=== PATIENT | female | born 2000 | race Caucasian/White ===

== ENCOUNTER 2019-04-24 21:55 | Emergency (ER) | payer MEDICAID ==
[2019-04-24 22:18] VITALS: BP 118/47; PULSE 79
--- NOTE | 2019-04-24 22:39 | EDM.PDOC ---
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 Does not know blood type. Clinic records show her blood type is B+. 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 (see below) (none) suprapubic Pain Score (Numeric/FACES): 6 - Related Data Allergies Allergy/AdvReac Type Severity Reaction Status Date / Time No Known Allergies Allergy Verified 04/24/19 22:27 Home Meds: Home Meds Ondansetron [Zofran ODT] 4 mg PO Q6H PRN #10 tab.dis 05/28/16 [Rx] PNV95/Ferrous Fumarate/FA [ Vitamin Tablet] 1 each PO DAILY 05/28/16 [ History] Progesterone, Micronized [Progesterone] 100 mg PO BID 04/24/19 [History] Past Medical History - Past Health History Medical/Surgical History: Denies Medical/Surgical History 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: Neurological History: Reports: Migraines Psychiatric History: Reports: ADD - Infectious Disease History Infectious Disease History: Reports: Chicken Pox Social & Family History - Family History GI: Reports: Cholelithiasis, Irritable Bowel Syndrome Musculoskeletal: Reports: Arthritis Psychiatric: Reports: ADD, Depression Endocrine/Metabolic: Reports: Diabetes, type II Oncologic: Reports: Lung ED ROS GENERAL - Review of Systems Review Of Systems: See Below Constitutional: Reports: No Symptoms HEENT: Reports: No Symptoms Respiratory: Reports: No Symptoms Cardiovascular: Reports: No Symptoms : Reports: Other (vaginal bleeding, less now, more an hour ago. May have passed tissue.) ED EXAM - Physical Exam Exam: See Below Exam Limited By: No Limitations General Appearance: Alert, WD/WN, No Apparent Distress Eye Exam: Bilateral Eye: Normal Inspection Ears: Normal External Exam, Normal Canal, Hearing Grossly Normal Nose: Normal Inspection, No Blood Throat/Mouth: Normal Inspection, Normal Lips, Normal Oropharynx, Normal Voice, No Airway Compromise Head: Atraumatic, Normocephalic Neck: Normal Inspection Respiratory/Chest: No Respiratory Distress, Lungs Clear, Normal Breath Sounds, No Accessory Muscle Use Cardiovascular: Regular Rate, Rhythm, No Edema GI/Abdominal Exam: Normal Bowel Sounds, Soft, Non-Tender, No Distention Back Exam: Normal Inspection Extremities: Normal Inspection, Normal Range of Motion, Non-Tender Neurological: Alert, Oriented, CN II-XII Intact, Normal Cognition, No Motor/ Sensory Deficits Psychiatric: Normal Affect, Normal Mood Skin Exam: Warm, Dry, Intact, Normal Color, No Rash Course - Vital Signs Last Recorded V/S: Last Vital Signs Temp 35.9 C 04/24/19 22:29 Pulse 79 04/24/19 22:29 Resp 16 04/24/19 22:29 BP 118/47 L 04/24/19 22:29 Pulse Ox 96 04/24/19 22:29 - Orders/Labs/Meds Labs: Laboratory Tests 04/24/19 04/24/19 Range/Units 22:31 22:31 Hgb 12.7 (12.0-15.0) g/dL HCG, Quant 29 H (0-6) mIU/mL Departure - Departure Time of Disposition: 23:31 Disposition: Home, Self-Care 01 Condition: Fair Clinical Impression: Threatened in first trimester, Threatened - Discharge Information *PRESCRIPTION DRUG MONITORING PROGRAM REVIEWED*: No *COPY OF PRESCRIPTION DRUG MONITORING REPORT IN PATIENT BIRGIT: No Instructions: Threatened Miscarriage, [id number] Referrals: Lucia Mclaughlin CNM [Primary Care Provider] - Forms: ED Department Discharge Additional Instructions: Acetaminophen as needed for pain relief. Recheck in the clinic in the next couple of days for recheck. Drink ample fluids. Avoid heavy lifting.
== END 2019-04-25 00:06 | disposition home or self-care (01) ==
LOC: JP.ED 21:55
DX: O20.0 Threatened abortion (principal); Z79.899 Other long term (current) drug therapy; Z3A.01 Less than 8 weeks gestation of pregnancy
CPT/HCPCS: 36415; 84702; 85018; 99283

== ENCOUNTER 2019-07-29 12:43 | Emergency (ER) | payer MEDICAID ==
[2019-07-29 12:55] VITALS: BP 106/64; PULSE 73
--- NOTE | 2019-07-29 13:13 | EDM.PDOC ---
ED HPI GENERAL MEDICAL PROBLEM - General Chief Complaint: Gastrointestinal Problem Stated Complaint: UTI Time Seen by Provider: 07/29/19 13:05 Source of Information: Reports: Patient History Limitations: Reports: No Limitations - History of Present Illness INITIAL COMMENTS - FREE TEXT/NARRATIVE: 19-year-old female with dysuria and increased urinary frequency for the past 24 hours. No fevers or chills, no nausea or vomiting. She is 13 weeks gestation . She has had UTIs in the past. Onset: Gradual Duration: Hour(s): (24 to 48 hours) Associated Symptoms: Denies: Chest Pain, Fever/Chills, Loss of Appetite, Nausea/ Vomiting, Shortness of Breath Bladder Pain Score (Numeric/FACES): 6 - Related Data Allergies Allergy/AdvReac Type Severity Reaction Status Date / Time No Known Allergies Allergy Verified 07/29/19 12:56 Home Meds: Home Meds Ondansetron [Zofran ODT] 4 mg PO Q6H PRN #10 tab.dis 05/28/16 [Rx] Pnv No.95/Ferrous Fum/Folic AC [ Vitamin Tablet] 1 each PO DAILY [History] Progesterone, Micronized [Progesterone] 100 mg PO BID 04/24/19 [History] Past Medical History - Past Health History Medical/Surgical History: Denies Medical/Surgical History HEENT History: Reports: Impaired Vision Genitourinary History: Reports: UTI, Recurrent 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: , 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 Neurological History: Reports: Migraines Psychiatric History: Reports: ADD, Anxiety, Depression - Infectious Disease History Infectious Disease History: Reports: Chicken Pox - Past Surgical History Head Surgeries/Procedures: Reports: None HEENT Surgical History: Reports: None Female Surgical History: Reports: None Neurological Surgical History: Reports: None Dermatological Surgical History: Reports: None Social & Family History - Family History GI: Reports: Cholelithiasis, Irritable Bowel Syndrome Musculoskeletal: Reports: Arthritis Psychiatric: Reports: ADD, Depression Endocrine/Metabolic: Reports: Diabetes, type II Oncologic: Reports: Lung - Tobacco Use Smoking Status *Q: Never Smoker Second Hand Smoke Exposure: No - Caffeine Use Caffeine Use: Reports: Soda - Recreational Drug Use Recreational Drug Use: No ED ROS GENERAL - Review of Systems Review Of Systems: See Below Constitutional: Denies: Fever, Chills Respiratory: Denies: Shortness of Breath Cardiovascular: Denies: Chest Pain GI/Abdominal: Denies: Abdominal Pain, Nausea, Vomiting Skin: Reports: No Symptoms ED EXAM, RENAL/ - Physical Exam Exam: See Below Exam Limited By: No Limitations General Appearance: Alert, No Apparent Distress Respiratory/Chest: No Respiratory Distress, Lungs Clear Back Exam: No: CVA Tenderness (R), CVA Tenderness (L) Neurological: Alert, Oriented Psychiatric: Normal Affect, Normal Mood Skin Exam: Warm, Dry Course - Vital Signs Last Recorded V/S: Last Vital Signs Temp 96.9 F 07/29/19 13:00 Pulse 73 07/29/19 13:00 Resp 18 07/29/19 13:00 BP 106/64 07/29/19 13:00 Pulse Ox 98 07/29/19 13:00 - Orders/Labs/Meds Orders: Active Orders 24 hr Category Date Time Status CULTURE URINE [RM] Stat Lab 07/29/19 13:42 Received Labs: Laboratory Tests 07/29/19 Range/Units 13:09 Urine Color [place] A (YELLOW) Urine Appearance Turbid A (CLEAR) Urine pH 6.5 (5.0-8.0) Ur Specific [place] 1.025 (1.008-1.030) Urine Protein Trace H (NEGATIVE) mg/dL Urine Glucose (UA) Negative (NEGATIVE) mg/dL Urine Ketones Negative (NEGATIVE) mg/dL Urine Occult Blood Negative (NEGATIVE) Urine Nitrite Positive H (NEGATIVE) Urine Bilirubin Small H (NEGATIVE) Urine Urobilinogen >=8.0 H (0.2-1.0) EU/dL Ur Leukocyte Esterase Small H (NEGATIVE) Urine RBC 5-10 H (0-5) Urine WBC 10-20 H (0-5) Ur Epithelial Cells Moderate Amorphous Sediment Few Urine Bacteria Many Urine Mucus Many - Re-Assessments/Exams Free Text/Narrative Re-Assessment/Exam: 07/29/19 13:12 UA was obtained. 07/29/19 13:43 Urine is markedly positive with nitrite positive urine, WBCs and bacteria. A culture was initiated and she will be placed on cephalexin 500 3 times daily for the next 7 days. She should recheck if not improving in the next 24 to 48 hours. Departure - Departure Time of Disposition: 13:56 Disposition: Home, Self-Care 01 Clinical Impression: Cystitis - Discharge Information Instructions: Urinary Tract Infection, Adult Referrals: Lucia Mclaughlin CNM [Primary Care Provider] - Forms: ED Department Discharge Care Plan Goals: Take antibiotic 3 times a day until gone, and recheck in 2 to 3 days if not improving. You will be contacted if your antibiotic needs changing. Return sooner if worsening such as vomiting the medication, increased pain or fever. Sepsis Event Note - Evaluation Sepsis Screening Result: No Definite Risk - Focused Exam Vital Signs: Vital Signs Temp Pulse Resp BP Pulse Ox 07/29/19 13:00 96.9 F 73 18 106/64 98 07/29/19 12:54 96.9 F 73 18 106/64 98 Date Exam was Performed: 07/29/19 Time Exam was Performed: 13:55 - My Orders Last 24 Hours: My Active Orders 07/29/19 13:42 CULTURE URINE [RM] Stat - Assessment/Plan Last 24 Hours: My Active Orders 07/29/19 13:42 CULTURE URINE [RM] Stat
== END 2019-07-29 13:57 | disposition home or self-care (01) ==
LOC: JP.ED 12:43
DX: O23.11 Infections of bladder in pregnancy, first trimester (principal); Z3A.13 13 weeks gestation of pregnancy
CPT/HCPCS: 81001; 87086; 87088; 87186; 99283

== ENCOUNTER 2020-01-24 06:59 | Observation (INO) | payer MEDICAID ==
[2020-01-24] MEDS ORDERED: Ondansetron 4 MG/2 ML SDV IV PRN (07:39)
[2020-01-24] MEDS ORDERED: Lactated Ringers 1,000 ML IV ONE (07:39)
[2020-01-24] MEDS ORDERED: diphenhydrAMINE 50 MG/ML SDV IVPUSH PRN ×2 (07:39)
[2020-01-24] MEDS ORDERED: Naloxone 0.4 MG/ML SDV IVPUSH PRN (07:39)
[2020-01-24] MEDS ORDERED: Sodium Chloride 0.9% 10 ML Syringe FLUSH PRN (07:39)
[2020-01-24] MEDS ORDERED: ePHEDrine 50 MG/ML SDV IVPUSH PRN ×2 (07:39)
[2020-01-24] MEDS ORDERED: Acetaminophen 325 MG Tab PO PRN (07:39)
[2020-01-24] MEDS ORDERED: Ropivacaine 200 MG in Premix Bag 1 BAG EPIDUR SCH (07:45)
--- NOTE | 2020-01-24 07:52 | PCM.LDHP ---
L&D History of Present Illness - General Date of Service: 01/24/20 Admit Problem/Dx: Patient Status Order with Admit Dx/Problem 01/24/20 07:39 Patient Status [ADT] Routine Admission Diagnosis/Problem Admission Diagnosis/Problem - History of Present Illness Improves with: Reports: None Worsens with: Reports: None Associated Symptoms: Reports: N - Related Data Allergies/Adverse Reactions: Allergies Allergy/AdvReac Type Severity Reaction Status Date / Time No Known Allergies Allergy Verified 07/29/19 12:56 Home Medications: Home Meds Ondansetron [Zofran ODT] 4 mg PO Q6H PRN #10 tab.dis 05/28/16 [Rx] Pnv No.95/Ferrous Fum/Folic AC [ Vitamin Tablet] 1 each PO DAILY [History] Progesterone, Micronized [Progesterone] 100 mg PO BID 04/24/19 [History] Past Medical History - Past Health History Medical/Surgical History: Denies Medical/Surgical History HEENT History: Reports: Impaired Vision Genitourinary History: Reports: UTI, Recurrent 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: , 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 Neurological History: Reports: Migraines Psychiatric History: Reports: ADD, Anxiety, Depression Hematologic History: Reports: Iron Deficiency - Infectious Disease History Infectious Disease History: Reports: Chicken Pox - Past Surgical History Head Surgeries/Procedures: Reports: None HEENT Surgical History: Reports: None Female Surgical History: Reports: None Neurological Surgical History: Reports: None Dermatological Surgical History: Reports: None Social & Family History - Family History GI: Reports: Cholelithiasis, Irritable Bowel Syndrome Musculoskeletal: Reports: Arthritis Psychiatric: Reports: ADD, Depression Endocrine/Metabolic: Reports: Diabetes, type II Oncologic: Reports: Lung - Caffeine Use Caffeine Use: Reports: Soda H&P Review of Systems - Review of Systems: Review Of Systems: See Below General: Reports: No Symptoms HEENT: Reports: No Symptoms Pulmonary: Reports: No Symptoms Cardiovascular: Reports: No Symptoms Gastrointestinal: Reports: No Symptoms Genitourinary: Reports: No Symptoms Musculoskeletal: Reports: No Symptoms Skin: Reports: No Symptoms Psychiatric: Reports: No Symptoms Neurological: Reports: No Symptoms Hematologic/Lymphatic: Reports: No Symptoms Immunologic: Reports: No Symptoms L&D Exam - Exam Exam: See Below - OB Specific Movement: Active Heart Tones: Present Heart Rate (FHR) Variability: Moderate (6-25 bmp) Presentation: Vertex - Carlos Score Carlos Score Cervix Position: Midposition Carlos Score Consistency: Soft Carlos Score Effacement: 51-70% Carlos Score Dilation: 1-2 cm Carlos Score Infant's Station: -2 Carlos Score Total: 7 - Exam General: Alert, Oriented, Cooperative HEENT: PERRLA, Conjunctiva Clear, EACs Clear, EOMI, Hearing Intact, Mucosa Moist & [place], Nares Patent, Normal Nasal Septum, Posterior Pharynx Clear, Pupils Equal, Pupils Reactive, TMs Clear Neck: Supple, Trachea Midline Lungs: Clear to Auscultation, Normal Respiratory Effort Cardiovascular: Regular Rate, Regular Rhythm GI/Abdominal Exam: Normal Bowel Sounds, Soft, Non-Tender, No Organomegaly, No Distention, No Abnormal Bruit, No Mass, Pelvis Stable Rectal Exam: Normal Exam, Normal Rectal Tone Genitourinary: Normal external exam, Normal bimanual exam, Normal speculum exam Back Exam: Normal Inspection, Full Range of Motion Extremities: Normal Inspection, Normal Range of Motion, Non-Tender, No Pedal Edema, Normal Capillary Refill Skin: Warm, Dry, Intact Neurological: Cranial Nerves Intact, Reflexes Equal Bilateral Psychiatric: Alert, Normal Affect, Normal Mood - Problem List (1) SNOMED Code(s): 01430139 ICD Code: Z34.90 - ENCNTR FOR SUPRVSN OF NORMAL , UNSP, UNSP TRIMESTER Status: Acute Current Visit: Yes Qualifiers: Weeks of gestation: 39 weeks Qualified Code(s): Z3A.39 - 39 weeks gestation of (2) Encounter for induction of labor SNOMED Code(s): 875346963 ICD Code: Z34.90 - ENCNTR FOR SUPRVSN OF NORMAL , UNSP, UNSP TRIMESTER Status: Acute Current Visit: Yes (3) History of delivery by vacuum extraction, currently in third trimester SNOMED Code(s): 663050167, 040289408 ICD Code: O09.293 - SUPRVSN OF PREG W POOR REPRODCTV OR OBSTET HX, THIRD TRI Status: Acute Current Visit: Yes Problem List Initiated/Reviewed/Updated: Yes Orders Last 24hrs: Active Orders 24 hr Category Date Time Status Patient Status [ADT] Routine ADT 01/24/20 07:39 Ordered Ambulate [RC] PER UNIT ROUTINE Care 01/24/20 07:39 Ordered Communication Order [RC] ASDIRECTED Care 01/24/20 07:39 Ordered Communication Order [RC] ASDIRECTED Care 01/24/20 07:39 Ordered Communication Order [RC] ROUTINE Care 01/24/20 07:39 Ordered Communication Order [RC] ROUTINE Care 01/24/20 07:39 Ordered Communication Order [RC] ROUTINE Care 01/24/20 07:39 Ordered Heart Tones [RC] PER UNIT ROUTINE Care 01/24/20 07:39 Ordered Non Stress Test [RC] Click to Edit Care 01/24/20 07:39 Ordered Insert Urinary Catheter [OM.PC] ASDIRECTED Care 01/24/20 07:45 Ordered Local Anesthetic Infusion Pump [RC] ASDIRECTED Care 01/24/20 07:39 Ordered May Shower [RC] ASDIRECTED Care 01/24/20 07:39 Ordered Notify Provider Vital Signs [RC] PRN Care 01/24/20 07:39 Ordered Notify Provider [RC] PRN Care 01/24/20 07:39 Ordered Oxygen Therapy [RC] ASDIRECTED Care 01/24/20 07:39 Ordered PCEA Epidural [RC] ASDIRECTED Care 01/24/20 07:39 Ordered PCEA Epidural [RC] ASDIRECTED Care 01/24/20 07:39 Ordered PCEA Epidural [RC] ASDIRECTED Care 01/24/20 07:42 Ordered Peripheral IV Care [RC] . DIRECTED Care 01/24/20 07:42 Ordered Pulse Oximetry [RC] ASDIRECTED Care 01/24/20 07:39 Ordered Up ad Lay [RC] ASDIRECTED Care 01/24/20 07:39 Ordered Urinary Catheter Assessment [RC] ASDIRECTED Care 01/24/20 07:42 Ordered VTE/DVT Education [RC] Click to Edit Care 01/24/20 07:45 Ordered Vital Signs [RC] PER UNIT ROUTINE Care 01/24/20 07:39 Ordered Vital Signs [RC] PER UNIT ROUTINE Care 01/24/20 07:39 Ordered Regular Diet [DIET] Diet 01/24/20 Breakfast Ordered CBC WITH AUTO DIFF [HEME] Routine Lab 01/24/20 07:39 Ordered DRUG SCREEN, URINE [URCHEM] Routine Lab 01/24/20 07:39 Ordered UA W/MICROSCOPIC [URIN] Routine Lab 01/24/20 07:39 Acetaminophen [Tylenol] Med 01/24/20 07:39 Ordered 650 mg PO Q4H PRN Lactated Ringers [Ringers, Lactated] 1,000 ml Med 01/24/20 07:39 Ordered IV .BOLUS Naloxone [Narcan] Med 01/24/20 07:39 Ordered 0.1 mg IVPUSH ASDIRECTED PRN Ondansetron [Zofran] Med 01/24/20 07:39 Ordered 4 mg IV Q4H PRN Ropivacaine [Naropin 0.2%] 200 mg Med 01/24/20 07:45 Ordered Premix Bag 1 bag EPIDUR ASDIRECTED Sodium Chloride 0.9% [Saline Flush] Med 01/24/20 07:39 Ordered 10 ml FLUSH ASDIRECTED PRN diphenhydrAMINE [Benadryl] Med 01/24/20 07:39 Ordered 25 mg IVPUSH Q6H PRN diphenhydrAMINE [Benadryl] Med 01/24/20 07:39 Ordered 50 mg IVPUSH Q6H PRN ePHEDrine [ePHEDrine sulfate] Med 01/24/20 07:39 Ordered 10 mg IVPUSH ASDIRECTED PRN ePHEDrine [ePHEDrine sulfate] Med 01/24/20 07:39 Ordered 10 mg IVPUSH ASDIRECTED PRN miSOPROStoL [Cytotec] Med 01/24/20 08:00 Once 50 mcg VAG ONETIME ONE DVT/VTE Prophylaxis Reflex [OM.PC] Routine Oth 01/24/20 07:39 Ordered Epidural Catheter Management [OM.PC] Routine Oth 01/24/20 07:39 Ordered Epidural Catheter Management [OM.PC] Urgent Oth 01/24/20 07:39 Ordered Peripheral IV Insertion Pediatric [OM.PC] Routine Oth 01/24/20 07:39 Ordered Saline Lock Insert [OM.PC] Routine Oth 01/24/20 07:39 Ordered Resuscitation Status Routine Resus Stat 01/24/20 07:39 Ordered Medication Orders Misoprostol (Cytotec) 50 mcg VAG ONETIME ONE Stop: 01/24/20 08:01 Last Admin: 01/24/20 07:25 Dose: 50 mcg Assessment/Plan Comment:: 01/24/2020 19 yo here at 39 2/7 gestational weeks for an induction of labor. Has a history of needing a vacuum assisted delivery with large repair with last full term . Patient requested induction and together provider and together weighed risks and benefits. SVE-1-1.5/75/-2 Cytotec 50mcg placed vaginally FHTs category one Labs-B positive, Hep B neg, Hep C neg, HIV neg, RPR nonreactive, GBS negative Plan- Monitor for labor Monitor FHTs Patient may be up ad lay after protocol for cytotec Patient may eat regular diet Patient may have pain control per her request, prefer greater than 4cms or call provider Plan and anticipate placing another cytotec over lunch or starting pitocin Plan and anticipate a vaginal delivery
[2020-01-24] MEDS ORDERED: Misoprostol 50 MCG (1/2 of 100 MCG) Tab VAG ONE (08:00)
[2020-01-24] MEDS ORDERED: Lactated Ringers 500 ML IV SCH (12:15)
[2020-01-24] MEDS ORDERED: Lactated Ringers 1,000 ML IV SCH ×2 (13:15→14:45)
[2020-01-24] MEDS ORDERED: hydrOXYzine HCl 25 MG Tab PO ONE (14:26)
[2020-01-24] MEDS ORDERED: Terbutaline 1 MG/ML SDV SUBCUT ONE (15:00)
[2020-01-24 15:12] VITALS: BP 110/59
[2020-01-24 17:12] VITALS: PULSE 104
--- NOTE | 2020-01-24 18:32 | PCM.PNLD ---
Labor Progress Note - VS & Meds Vital Signs: Last Vital Signs Temp 35.5 C L 01/24/20 15:00 Pulse 104 H 01/24/20 16:00 Resp 18 01/24/20 15:00 BP 110/59 L 01/24/20 15:00 Pulse Ox 99 01/24/20 16:00 Active Medications: Current Medications Acetaminophen (Tylenol) 650 mg PO Q4H PRN PRN Reason: Pain (Mild 1-3) and fever Diphenhydramine HCl (Benadryl) 25 mg IVPUSH Q6H PRN PRN Reason: Itching Diphenhydramine HCl (Benadryl) 50 mg IVPUSH Q6H PRN PRN Reason: Itching Ephedrine Sulfate (Ephedrine Sulfate) 10 mg IVPUSH ASDIRECTED PRN PRN Reason: Hypotension Ropivacaine 200 mg/ Premix 100 mls @ 0 mls/hr EPIDUR ASDIRECTED NNEKA Oxytocin/Sodium Chloride (Pitocin In Ns 20 Units/1,000 Ml) 20 unit in 1,000 mls @ 6 mls/hr IV TITRATE NNEKA; Protocol Lactated Ringer's (Ringers, Lactated) 1,000 mls @ 125 mls/hr IV ASDIRECTED NNEKA Last Admin: 01/24/20 14:30 Dose: 125 mls/hr Naloxone HCl (Narcan) 0.1 mg IVPUSH ASDIRECTED PRN PRN Reason: Oversedation Ondansetron HCl (Zofran) 4 mg IV Q4H PRN PRN Reason: Nausea/Vomiting Sodium Chloride (Saline Flush) 10 ml FLUSH ASDIRECTED PRN PRN Reason: Keep Vein Open Discontinued Medications Hydroxyzine HCl (Atarax) 50 mg PO ONETIME ONE Stop: 01/24/20 14:27 Last Admin: 01/24/20 14:39 Dose: 50 mg Lactated Ringer's (Ringers, Lactated) 1,000 mls @ 999 mls/hr IV .BOLUS ONE Stop: 01/24/20 08:39 Lactated Ringer's (Ringers, Lactated) 500 mls @ 500 mls/hr IV .BOLUS NNEKA Lactated Ringer's (Ringers, Lactated) 1,000 mls @ 500 mls/hr IV ASDIRECTED NNEKA Stop: 01/24/20 15:15 Last Admin: 01/24/20 12:15 Dose: 500 mls/hr Misoprostol (Cytotec) 50 mcg VAG ONETIME ONE Stop: 01/24/20 08:01 Last Admin: 01/24/20 07:25 Dose: 50 mcg Terbutaline Sulfate (Brethine) 0.25 mg SUBCUT ONETIME ONE Stop: 01/24/20 15:01 Last Admin: 01/24/20 15:13 Dose: 0.25 mg - Uterine Contractions Uterine Monitoring Mode: External [place] Contraction Frequency (min): 2.5-4 Contraction Duration (sec): 60-80 Contraction Intensity: Mild Uterine Resting Tone: Soft - Monitoring Heart Rate (FHR) Variability: Moderate (6-25 bmp) - Vaginal Exam Dilation (cm): 1.5 Effacement (Percent): 70 Cervical Position: Posterior Sterile Vaginal Exam Performed By: Lucia Mclaughlin - Labor Progress (Free Text) Labor Progress: 01/24/2020 Patient has not progressed. she is very anxious, complaining of severe pain in her hips and back, She is also rodrigo regularly SVE unchanged FHTs category one Contractions tachy Plan- Will not do any more medications at this time Continue to monitor for labor Continue to monitor FHTS Give atarax 50mg then a dose of terbutaline Will reassess later today
--- NOTE | 2020-01-24 18:34 | PCM.PNLD ---
Labor Progress Note - VS & Meds Vital Signs: Last Vital Signs Temp 35.5 C L 01/24/20 15:00 Pulse 104 H 01/24/20 16:00 Resp 18 01/24/20 15:00 BP 110/59 L 01/24/20 15:00 Pulse Ox 99 01/24/20 16:00 Active Medications: Current Medications Acetaminophen (Tylenol) 650 mg PO Q4H PRN PRN Reason: Pain (Mild 1-3) and fever Diphenhydramine HCl (Benadryl) 25 mg IVPUSH Q6H PRN PRN Reason: Itching Diphenhydramine HCl (Benadryl) 50 mg IVPUSH Q6H PRN PRN Reason: Itching Ephedrine Sulfate (Ephedrine Sulfate) 10 mg IVPUSH ASDIRECTED PRN PRN Reason: Hypotension Ropivacaine 200 mg/ Premix 100 mls @ 0 mls/hr EPIDUR ASDIRECTED NNEKA Oxytocin/Sodium Chloride (Pitocin In Ns 20 Units/1,000 Ml) 20 unit in 1,000 mls @ 6 mls/hr IV TITRATE NNEKA; Protocol Lactated Ringer's (Ringers, Lactated) 1,000 mls @ 125 mls/hr IV ASDIRECTED NNEKA Last Admin: 01/24/20 14:30 Dose: 125 mls/hr Naloxone HCl (Narcan) 0.1 mg IVPUSH ASDIRECTED PRN PRN Reason: Oversedation Ondansetron HCl (Zofran) 4 mg IV Q4H PRN PRN Reason: Nausea/Vomiting Sodium Chloride (Saline Flush) 10 ml FLUSH ASDIRECTED PRN PRN Reason: Keep Vein Open Discontinued Medications Hydroxyzine HCl (Atarax) 50 mg PO ONETIME ONE Stop: 01/24/20 14:27 Last Admin: 01/24/20 14:39 Dose: 50 mg Lactated Ringer's (Ringers, Lactated) 1,000 mls @ 999 mls/hr IV .BOLUS ONE Stop: 01/24/20 08:39 Lactated Ringer's (Ringers, Lactated) 500 mls @ 500 mls/hr IV .BOLUS NNEKA Lactated Ringer's (Ringers, Lactated) 1,000 mls @ 500 mls/hr IV ASDIRECTED NNEKA Stop: 01/24/20 15:15 Last Admin: 01/24/20 12:15 Dose: 500 mls/hr Misoprostol (Cytotec) 50 mcg VAG ONETIME ONE Stop: 01/24/20 08:01 Last Admin: 01/24/20 07:25 Dose: 50 mcg Terbutaline Sulfate (Brethine) 0.25 mg SUBCUT ONETIME ONE Stop: 01/24/20 15:01 Last Admin: 01/24/20 15:13 Dose: 0.25 mg - Uterine Contractions Uterine Monitoring Mode: External [place] Contraction Frequency (min): 2.5-4 Contraction Duration (sec): 60-80 Contraction Intensity: Mild Uterine Resting Tone: Soft - Monitoring Heart Rate (FHR) Variability: Moderate (6-25 bmp) - Vaginal Exam Dilation (cm): 1.5 Effacement (Percent): 70 Cervical Position: Posterior Sterile Vaginal Exam Performed By: Lucia Mclaughlin - Labor Progress (Free Text) Labor Progress: 01/24/2020 Atarax helped calm patient, SVE still remains unchanged. Patient educated on going home, sleeping here, or coming back next week for induction, patient has requested to go home and wait for spontaneous labor or will come back next tuesday for induction of labor. FHTs category one Contractions still regular Plan- Discharge patient home per her request Will send in medication for sleep
[2020-01-24] MEDS ORDERED: hydrOXYzine HCl 25 MG Tab PO PRN (22:00)
== END 2020-01-24 19:18 | disposition home or self-care (01) ==
LOC: JP.OB 06:59
PROVIDERS: ADMIT Advanced Practice Midwife; ATTEND Advanced Practice Midwife
DX: O62.9 Abnormality of forces of labor, unspecified (principal); O99.343 Other mental disorders complicating pregnancy, third trimester; F41.9 Anxiety disorder, unspecified; F32.9 Major depressive disorder, single episode, unspecified; O09.293 Supervision of pregnancy with other poor reproductive or obstetric history, third trimester; Z3A.39 39 weeks gestation of pregnancy; Z79.899 Other long term (current) drug therapy
CPT/HCPCS: 36415; 80305; 81001; 85025; A9270; J3105; J7120

== ENCOUNTER 2020-01-25 13:09 | Inpatient (IN) | payer MEDICAID ==
--- NOTE | 2020-01-25 14:12 | PCM.LDHP ---
L&D History of Present Illness - General Date of Service: 01/25/20 Admit Problem/Dx: Admission Diagnosis/Problem Admission Diagnosis/Problem Source of Information: Patient History Limitations: Reports: No Limitations - History of Present Illness Introduction:: 01/25/20 19 yo is here at 39 4/7 in active labor. Patient was here yesterday for cervical ripening and possible induction for term and per patient request. Her cervix did not change with cytotec so it was decided to send her home. She woke up this am with contractions around 0500 that have been progressively getting stronger through out the day. Membranes intact. She is coping well with contractions and does not want anything for pain at this time although does want an epidural at some point. Hx of one . Anticipate boy. Timing/Duration: Reports: minutes: (5-6) Severity: Moderate Improves with: Reports: None Worsens with: Reports: None Associated Symptoms: Reports: vaginal bleeding (bloody show) - Related Data Allergies/Adverse Reactions: Allergies Allergy/AdvReac Type Severity Reaction Status Date / Time No Known Allergies Allergy Verified 07/29/19 12:56 Home Medications: Home Meds Pnv No.95/Ferrous Fum/Folic AC [ Vitamin Tablet] 1 each PO DAILY [History] hydrOXYzine HCL [hydrOXYzine] 50 mg PO QID #28 tablet 01/24/20 [Rx] Ferrous Sulfate [Iron] 325 mg PO DAILY 01/25/20 [History] Past Medical History - Past Health History Medical/Surgical History: Denies Medical/Surgical History HEENT History: Reports: Impaired Vision Genitourinary History: Reports: UTI, Recurrent 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: , 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 : 4 Para: 1 LMP (Approximate): Neurological History: Reports: Migraines Psychiatric History: Reports: ADD, Anxiety, Depression Hematologic History: Reports: Iron Deficiency - Infectious Disease History Infectious Disease History: Reports: Chicken Pox - Past Surgical History Head Surgeries/Procedures: Reports: None HEENT Surgical History: Reports: None Female Surgical History: Reports: None Neurological Surgical History: Reports: None Dermatological Surgical History: Reports: None Social & Family History - Family History GI: Reports: Cholelithiasis, Irritable Bowel Syndrome Musculoskeletal: Reports: Arthritis Psychiatric: Reports: ADD, Depression Endocrine/Metabolic: Reports: Diabetes, type II Oncologic: Reports: Lung - Caffeine Use Caffeine Use: Reports: Soda H&P Review of Systems - Review of Systems: Review Of Systems: See Below General: Reports: No Symptoms HEENT: Reports: No Symptoms Pulmonary: Reports: No Symptoms Cardiovascular: Reports: No Symptoms Gastrointestinal: Reports: No Symptoms Genitourinary: Reports: No Symptoms Musculoskeletal: Reports: No Symptoms Skin: Reports: No Symptoms Psychiatric: Reports: No Symptoms Neurological: Reports: No Symptoms Hematologic/Lymphatic: Reports: No Symptoms Immunologic: Reports: No Symptoms L&D Exam - Exam Exam: See Below - Vital Signs Weight: 93.758 kg - OB Specific Contraction Intensity: Moderate Movement: Active Heart Tones: Present Heart Rate (FHR) Variability: Moderate (6-25 bmp) Presentation: Vertex Estimated Weight: 8 lb - Exam General: Alert, Oriented HEENT: PERRLA, Conjunctiva Clear, EOMI, Hearing Intact, Mucosa Moist & [place], Nares Patent, Normal Nasal Septum, Pupils Equal, Pupils Reactive Neck: Supple, Trachea Midline Lungs: Clear to Auscultation, Normal Respiratory Effort Cardiovascular: Regular Rate, Regular Rhythm GI/Abdominal Exam: Normal Bowel Sounds, Soft, Non-Tender, No Distention, Pelvis Stable Genitourinary: Normal external exam, Cervical dilitation, Enlarged uterus Back Exam: Normal Inspection, Full Range of Motion Extremities: Normal Inspection, Normal Range of Motion, Non-Tender, No Pedal Edema, Normal Capillary Refill Skin: Warm, Dry, Intact Neurological: Cranial Nerves Intact, Reflexes Equal Bilateral Psychiatric: Alert, Normal Affect, Normal Mood - Patient Data Lab Results Last 24 hrs: Laboratory Results - last 24 hr 01/25/20 01/25/20 Range/Units 13:51 13:51 Urine Color Yellow (YELLOW) Urine Appearance Clear (CLEAR) Urine pH 7.0 (5.0-8.0) Ur Specific [place] >= 1.030 (1.008-1.030) Urine Protein Negative (NEGATIVE) mg/dL Urine Glucose (UA) Negative (NEGATIVE) mg/dL Urine Ketones Negative (NEGATIVE) mg/dL Urine Occult Blood Trace-intact H (NEGATIVE) Urine Nitrite Negative (NEGATIVE) Urine Bilirubin Negative (NEGATIVE) Urine Urobilinogen 1.0 (0.2-1.0) EU/dL Ur Leukocyte Esterase Trace H (NEGATIVE) Urine RBC 0-5 (0-5) Urine WBC 5-10 H (0-5) Ur Epithelial Cells Many Urine Bacteria Few Urine Mucus Moderate Membrane Rupture Negative (NEGATIVE) - Problem List (1) Active labor at term SNOMED Code(s): 82679646 ICD Code: [id number] - Status: Acute Current Visit: Yes (2) History of delivery by vacuum extraction, currently in third trimester SNOMED Code(s): 924260297, 670630136 ICD Code: O09.293 - SUPRVSN OF PREG W POOR REPRODCTV OR OBSTET HX, THIRD TRI Status: Acute Current Visit: No (3) SNOMED Code(s): 76239845 ICD Code: Z34.90 - ENCNTR FOR SUPRVSN OF NORMAL , UNSP, UNSP TRIMESTER Status: Acute Current Visit: No Qualifiers: Weeks of gestation: 39 weeks Problem List Initiated/Reviewed/Updated: Yes Orders Last 24hrs: Active Orders 24 hr Category Date Time Status OB Check [OM.PC] Click To Edit Care 01/25/20 13:51 Ordered Assessment/Plan Comment:: 01/25/20 19 yo here in active labor SVE 4-5/80 per nursing Membranes intact GBS negative, B positive blood type, rubella immune, Hep B/C/HIV negative Category 1 FHT Plan: Monitor for labor progression Epidural when patient desires Anticipate
[2020-01-25] MEDS ORDERED: Ondansetron 4 MG/2 ML SDV IV PRN (14:14)
[2020-01-25] MEDS ORDERED: Sodium Chloride 0.9% 10 ML Syringe FLUSH PRN (14:14)
[2020-01-25] MEDS ORDERED: Calcium Carbonate 500 MG Tab.Chew PO PRN (14:14)
[2020-01-25] MEDS ORDERED: Lactated Ringers 1,000 ML IV ONE (14:17)
[2020-01-25] MEDS ORDERED: ePHEDrine 50 MG/ML SDV IVPUSH PRN (14:17)
--- NOTE | 2020-01-25 15:38 | PCM.PNLD ---
Labor Progress Note - VS & Meds Vital Signs: Last Vital Signs Temp 35.6 C L 01/25/20 14:14 Pulse Resp 16 01/25/20 14:14 BP 108/64 01/25/20 14:14 Pulse Ox 95 01/25/20 14:14 Active Medications: Current Medications Calcium Carbonate/Glycine (Tums) 1,000 mg PO Q2H PRN PRN Reason: Indigestion Ephedrine Sulfate (Ephedrine Sulfate) 10 mg IVPUSH ASDIRECTED PRN PRN Reason: Hypotension Ondansetron HCl (Zofran) 4 mg IV Q4H PRN PRN Reason: Nausea/Vomiting Sodium Chloride (Saline Flush) 10 ml FLUSH ASDIRECTED PRN PRN Reason: Keep Vein Open Discontinued Medications Lactated Ringer's (Ringers, Lactated) 1,000 mls @ 999 mls/hr IV .BOLUS ONE Stop: 01/25/20 15:17 - Uterine Contractions Uterine Monitoring Mode: External [place] Contraction Frequency (min): 1-4 Contraction Duration (sec): 50-90 Contraction Intensity: Moderate Uterine Resting Tone: Soft - Monitoring Monitor Mode: External Ultrasound Heart Rate (FHR) Variability: Moderate (6-25 bmp) Accelerations: Present, 15x15 Decelerations: None Strip Review: Category I - Vaginal Exam Dilation (cm): 5 Effacement (Percent): 80 Station: -1 Cervical Position: Midposition Sterile Vaginal Exam Performed By: Bernadette Gautam - Labor Progress (Free Text) Labor Progress: 01/25/20 Contractions still about every 5 minutes. SVE 5/80/-1. Discussed options with patient including expectant management, AROM (risks and benefits reviewed including injury to scalp, cord prolapse, need for Pitocin possible), and starting pitocin. Patient requests AROM. This was done with small amount of clear fluid. Category 1 tracing.
[2020-01-25] MEDS ORDERED: Ropivacaine 100 ML ONE (16:48)
[2020-01-25] MEDS ORDERED: Carboprost Tromethamine 250 MCG/1 ML Amp ONE (18:24)
[2020-01-25] MEDS ORDERED: Methylergonovine 0.2 MG/1 ML Amp ONE (18:24)
[2020-01-25] MEDS ORDERED: Misoprostol 200 MCG Tab ONE (18:24)
[2020-01-25] MEDS ORDERED: Misoprostol 50 MCG (1/2 of 100 MCG) Tab RECTAL ONE (18:25)
[2020-01-25] MEDS ORDERED: Acetaminophen 325 MG Tab, 50 Tab Bulk Bottle PO PRN (18:35)
[2020-01-25] MEDS ORDERED: Ibuprofen 200 MG Tab, 24 Tab Bulk Bottle PO PRN (18:35)
--- NOTE | 2020-01-25 18:40 | ANES ---
DATE OF SERVICE: 01/25/2020 TIME: 164. INDICATIONS: I was called to the Labor and Delivery Unit by Bernadette Gautam to evaluate Ms. Boyle for a labor epidural. She is approximately 6 cm. This is her second baby and in active labor. Risks and benefits of procedure were explained to the patient and she wished to proceed with a labor epidural. TECHNIQUE: She was placed in a sitting position. Her back was prepped x3 with Betadine, 1% lidocaine skin local was used. The epidural was placed at L3-4 using a 17-gauge Tuohy needle in loss of resistance technique. The epidural had very good feel throughout, and the epidural space was easily identified. There was negative CSF, negative blood, and negative paresthesias noted. Therefore, a catheter was threaded to 14 cm at the skin. There was negative CSF, negative blood, and negative paresthesias noted in the catheter as well. A 1.5% lidocaine test dose with epinephrine was given and this test dose was negative. The catheter was then secured with Tegaderm and tape and the patient was placed in a supine position. A 12 mL bolus of 0.2% ropivacaine was given. She had good relief from this and her vital signs remained stable, therefore, 0.2% ropivacaine drip was started at 10 mL/h. Her vital signs remained stable throughout the procedure and nurse was with me for the entire procedure. There were no anesthesia complications noted, and we will continue to monitor her throughout her Labor. Tello Gonzalez CRNA /[id number]
[2020-01-25] MEDS ORDERED: Docusate Sodium 100 MG Cap PO PRN (18:53)
[2020-01-25] MEDS ORDERED: Lanolin 100% Cream 40 GM Tube TOP PRN (18:53)
--- NOTE | 2020-01-25 19:04 | PCM.DEL ---
L & D Note - General Info Date of Service: 01/25/20 Mother's Due Date: 02/01/20 - Delivery Note Labor: Spontaneous Cervical Ripening Method: Misoprostil Delivery Outcome: Livebirth Delivery Method: Spontaneous Vaginal Delivery-Single Infant Delivery Mode: Spontaneous Presentation: Left Occiput Anterior (KAVITHA) Nuchal Cord: None, Present Anesthesia Type: Epidural Episiotomy Type: None Laceration: 1st Degree Suture type: Vicryl Suture size: 3-0 Placenta: Intact, Spontaneous Cord: 3 Vessels Estimated Blood Loss: 350 : Stimulated Score 1 min: 9 Score 5 min: 9 Second Stage Interventions: Reports: Second Nurse Assessed Progress of Descent, Second Nurse Reviewed Contraction Pattern, Second Nurse Reviewed Heart Tones, Encouragement Given, Pushing Effectively, Pushing Involuntarily, Pushing , McRobert's Position, Pushing, Pulls Own Legs Back Delivery Comments (Free Text/Narrative):: 01/25/20 19 yo G4 now P2 delivered a viable male at 1809. Cervical ripening done yesterday. Patient came back today in active labor. She progressed nicely and had an epidural. Category 1 tracing through out labor. Infant delivered spontaneously in KAVITHA position. He cried spontaneously and was placed on mothers chest. Delayed cord clamping done. Placenta delivered intact with a 3 vessel cord. Patient has a very small 1st degree perineal laceration, no sutures needed. Also has a split on the left low labia that required minimal repair, this site was an obvious repair area from her last vaginal delivery. There are no cervical or vaginal lacerations. Patient had quite a bit of oozing and so both Pitocin IV and cytotec was given to clamp the uterus. Bleeding is now light and her FF. Apgars 9, 9. Weight 9 lb 11 oz. - General Info Date of Service: 01/25/20 Functional Status: Reports: Pain Controlled - Review of Systems General: Reports: No Symptoms HEENT: Reports: No Symptoms Pulmonary: Reports: No Symptoms Cardiovascular: Reports: No Symptoms Gastrointestinal: Reports: No Symptoms Genitourinary: Reports: No Symptoms Musculoskeletal: Reports: No Symptoms Skin: Reports: No Symptoms Neurological: Reports: No Symptoms Psychiatric: Reports: No Symptoms - Patient Data Vitals - Most Recent: Last Vital Signs Temp 35.6 C L 01/25/20 14:14 Pulse Resp 16 01/25/20 14:14 BP 108/64 01/25/20 14:14 Pulse Ox 95 01/25/20 14:14 Weight - Most Recent: 93.758 kg I&O - Last 24 Hours: Intake & Output 01/25/20 01/25/20 01/25/20 06:59 14:59 22:59 Intake Total 1000 Balance 1000 Lab Results Last 24 Hours: Laboratory Results - last 24 hr 01/25/20 01/25/20 Range/Units 13:51 13:51 Urine Color Yellow (YELLOW) Urine Appearance Clear (CLEAR) Urine pH 7.0 (5.0-8.0) Ur Specific [place] >= 1.030 (1.008-1.030) Urine Protein Negative (NEGATIVE) mg/dL Urine Glucose (UA) Negative (NEGATIVE) mg/dL Urine Ketones Negative (NEGATIVE) mg/dL Urine Occult Blood Trace-intact H (NEGATIVE) Urine Nitrite Negative (NEGATIVE) Urine Bilirubin Negative (NEGATIVE) Urine Urobilinogen 1.0 (0.2-1.0) EU/dL Ur Leukocyte Esterase Trace H (NEGATIVE) Urine RBC 0-5 (0-5) Urine WBC 5-10 H (0-5) Ur Epithelial Cells Many Urine Bacteria Few Urine Mucus Moderate Membrane Rupture Negative (NEGATIVE) Med Orders - Current: Current Medications Acetaminophen (Tylenol Bulk Bottle) 650 mg PO Q4H PRN PRN Reason: Pain Calcium Carbonate/Glycine (Tums) 1,000 mg PO Q2H PRN PRN Reason: Indigestion Ephedrine Sulfate (Ephedrine Sulfate) 10 mg IVPUSH ASDIRECTED PRN PRN Reason: Hypotension Ibuprofen (Motrin Bulk Bottle) 600 mg PO Q6H PRN PRN Reason: Pain Ondansetron HCl (Zofran) 4 mg IV Q4H PRN PRN Reason: Nausea/Vomiting Sodium Chloride (Saline Flush) 10 ml FLUSH ASDIRECTED PRN PRN Reason: Keep Vein Open Discontinued Medications Carboprost Tromethamine (Hemabate Ds) Confirm Administered Dose 250 mcg .ROUTE .STK-MED ONE Stop: 01/25/20 18:25 Lactated Ringer's (Ringers, Lactated) 1,000 mls @ 999 mls/hr IV .BOLUS ONE Stop: 01/25/20 15:17 Last Admin: 01/25/20 16:40 Dose: 999 mls/hr Oxytocin/Sodium Chloride (Pitocin In Ns 20 Units/1,000 Ml) 20 unit in 1,000 mls @ 999 mls/hr IV BOLUS ONE Stop: 01/25/20 17:30 Last Admin: 01/25/20 18:09 Dose: 999 mls/hr Ropivacaine (Naropin 0.2%) Confirm Administered Dose 100 mls @ as directed .ROUTE .STK-MED ONE Stop: 01/25/20 16:49 Methylergonovine Maleate (Methergine) Confirm Administered Dose 0.2 mg .ROUTE .STK-MED ONE Stop: 01/25/20 18:25 Misoprostol (Cytotec) Confirm Administered Dose 800 mcg .ROUTE .STK-MED ONE Stop: 01/25/20 18:25 Last Admin: 01/25/20 18:34 Dose: 800 mcg Misoprostol (Cytotec) 800 mcg RECTAL ONETIME ONE Stop: 01/25/20 18:26 - Exam General: Alert, Oriented HEENT: Pupils Equal, Pupils Reactive, EOMI, Mucous Membr. Moist/[place] Neck: Supple Lungs: Clear to Auscultation, Normal Respiratory Effort Cardiovascular: Regular Rate, Regular Rhythm GI/Abdominal Exam: Normal Bowel Sounds, Soft, Non-Tender, No Distention, Pelvis Stable (Female) Exam: Normal External Exam, Enlarged Uterus, Vaginal Bleeding. No: Vaginal Tears Back Exam: Normal Inspection, Full Range of Motion Extremities: Normal Inspection, Normal Range of Motion, Non-Tender, No Pedal Edema, Normal Capillary Refill Skin: Warm, Dry, Intact Neurological: No New Focal Deficit Psy/Mental Status: Alert, Normal Affect, Normal Mood - Problem List & Annotations (1) Active labor at term SNOMED Code(s): 52223046 Code(s): EPS1898 - Status: Acute Current Visit: Yes (2) History of delivery by vacuum extraction, currently in third trimester SNOMED Code(s): 253208488, 749909292 Code(s): O09.293 - SUPRVSN OF PREG W POOR REPRODCTV OR OBSTET HX, THIRD TRI Status: Acute Current Visit: No (3) SNOMED Code(s): 86616228 Code(s): Z34.90 - ENCNTR FOR SUPRVSN OF NORMAL , UNSP, UNSP TRIMESTER Status: Acute Current Visit: No Qualifiers: Weeks of gestation: 39 weeks (4) Vaginal delivery SNOMED Code(s): 890281333 Code(s): O80 - ENCOUNTER FOR FULL-TERM UNCOMPLICATED DELIVERY Status: Acute Current Visit: Yes - Problem List Review Problem List Initiated/Reviewed/Updated: Yes - My Orders Last 24 Hours: My Active Orders 01/25/20 13:51 OB Check [OM.PC] Click to Edit 01/25/20 14:14 Patient Status [ADT] Routine Communication Order [RC] ASDIRECTED Notify Provider [RC] PRN Up ad Lay [RC] ASDIRECTED Vital Signs [RC] PER UNIT ROUTINE Calcium Carbonate [Tums] 1,000 mg PO Q2H PRN Ondansetron [Zofran] 4 mg IV Q4H PRN Sodium Chloride 0.9% [Saline Flush] 10 ml FLUSH ASDIRECTED PRN DVT/VTE Prophylaxis Reflex [OM.PC] Routine Saline Lock Insert [OM.PC] Routine Resuscitation Status Routine 01/25/20 14:16 Notify Provider Vital Signs [RC] PRN VTE/DVT Education [RC] Click to Edit 01/25/20 14:17 ePHEDrine [ePHEDrine sulfate] 10 mg IVPUSH ASDIRECTED PRN Epidural Catheter Management [OM.PC] Urgent 01/25/20 14:18 Communication Order [RC] ASDIRECTED Local Anesthetic Infusion Pump [RC] ASDIRECTED PCEA Epidural [RC] ASDIRECTED Urinary Catheter Assessment [RC] ASDIRECTED 01/25/20 14:30 Insert Urinary Catheter [OM.PC] ASDIRECTED 01/25/20 18:35 Acetaminophen [Tylenol Bulk Bottle] 650 mg PO Q4H PRN Ibuprofen [Motrin Bulk Bottle] 600 mg PO Q6H PRN 01/25/20 18:53 Patient Status [ADT] Routine May Shower [RC] ASDIRECTED Vital Signs [RC] PFP Consult to Application Analyst [CONS] Routine Docusate Sodium [Colace] 100 mg PO BID PRN Lanolin [Lansinoh HPA] 1 gm TOP ASDIRECTED PRN Assess Lochia [WOMSER] Per Unit Routine Assess Uterine Involution [WOMSER] Per Unit Routine 01/25/20 18:54 Ice Therapy [OM.PC] Per Unit Routine Perineal Care [OM.PC] Per Unit Routine 01/25/20 Lunch Regular Diet [DIET] 01/26/20 05:11 CBC WITH AUTO DIFF [HEME] AM 01/26/20 08:00 Ferrous Sulfate 325 mg PO WITHBREAKFAST - Assessment Assessment:: 01/25/20 19 yo with 1st degree perineal with no repair, left labial with repair Beginning Hgb 9.9, pt bleeding light to moderate flow now - Plan Plan:: 01/25/20 19 yo here in active labor SVE 4-5/80 per nursing Membranes intact GBS negative, B positive blood type, rubella immune, Hep B/C/HIV negative Category 1 FHT Plan: Monitor for labor progression Epidural when patient desires Anticipate 01/25/20 Routine cares Monitor bleeding closely support Anticipate 24-48 hour stay
--- NOTE | 2020-01-26 06:15 | PCM.PNPP ---
- General Info Date of Service: 01/26/20 Functional Status: Reports: Pain Controlled - Review of Systems General: Reports: No Symptoms HEENT: Reports: No Symptoms Pulmonary: Reports: No Symptoms Cardiovascular: Reports: No Symptoms Gastrointestinal: Reports: No Symptoms Genitourinary: Reports: No Symptoms Musculoskeletal: Reports: No Symptoms Skin: Reports: No Symptoms Neurological: Reports: No Symptoms Psychiatric: Reports: No Symptoms - General Info Date of Service: 01/26/20 - Patient Data Vital Signs - Most Recent: Last Vital Signs Temp 37.0 C 01/26/20 03:04 Pulse 85 01/26/20 03:04 Resp 16 01/26/20 03:04 BP 109/61 01/26/20 03:04 Pulse Ox 98 01/26/20 03:04 Weight - Most Recent: 93.758 kg I&O - Last 24 Hours: Intake & Output 01/25/20 01/25/20 01/26/20 14:59 22:59 06:59 Intake Total 1000 900 Balance 1000 900 Lab Results - Last 24 Hours: Laboratory Results - last 24 hr 01/25/20 01/25/20 01/26/20 Range/Units 13:51 13:51 05:35 WBC 11.9 H (4.5-11.0) K/uL RBC 3.70 (3.30-5.50) M/uL Hgb 9.1 L (12.0-15.0) g/dL Hct 29.6 L (36.0-48.0) % MCV 80 (80-98) fL MCH 25 L (27-31) pg MCHC 31 L (32-36) % Plt Count 163 (150-400) K/uL Neut % (Auto) 75 H (36-66) % Lymph % (Auto) 17 L (24-44) % [place] % (Auto) 7 H (2-6) % Eos % (Auto) 1 L (2-4) % Baso % (Auto) 0 (0-1) % Urine Color Yellow (YELLOW) Urine Appearance Clear (CLEAR) Urine pH 7.0 (5.0-8.0) Ur Specific [place] >= 1.030 (1.008-1.030) Urine Protein Negative (NEGATIVE) mg/dL Urine Glucose (UA) Negative (NEGATIVE) mg/dL Urine Ketones Negative (NEGATIVE) mg/dL Urine Occult Blood Trace-intact H (NEGATIVE) Urine Nitrite Negative (NEGATIVE) Urine Bilirubin Negative (NEGATIVE) Urine Urobilinogen 1.0 (0.2-1.0) EU/dL Ur Leukocyte Esterase Trace H (NEGATIVE) Urine RBC 0-5 (0-5) Urine WBC 5-10 H (0-5) Ur Epithelial Cells Many Urine Bacteria Few Urine Mucus Moderate Membrane Rupture Negative (NEGATIVE) Med Orders - Current: Current Medications Acetaminophen (Tylenol Bulk Bottle) 650 mg PO Q4H PRN PRN Reason: Pain Last Admin: 01/25/20 20:48 Dose: 650 mg Calcium Carbonate/Glycine (Tums) 1,000 mg PO Q2H PRN PRN Reason: Indigestion Docusate Sodium (Colace) 100 mg PO BID PRN PRN Reason: Constipation Emollient Ointment (Lansinoh Hpa) 1 gm TOP ASDIRECTED PRN PRN Reason: Sore Nipples Last Admin: 01/25/20 20:50 Dose: 1 applic Ferrous Sulfate (Ferrous Sulfate) 325 mg PO WITHBREAKFAST NNEKA Ibuprofen (Motrin Bulk Bottle) 600 mg PO Q6H PRN PRN Reason: Pain Last Admin: 01/25/20 20:47 Dose: 200 mg Ondansetron HCl (Zofran) 4 mg IV Q4H PRN PRN Reason: Nausea/Vomiting Sodium Chloride (Saline Flush) 10 ml FLUSH ASDIRECTED PRN PRN Reason: Keep Vein Open Discontinued Medications Carboprost Tromethamine (Hemabate Ds) Confirm Administered Dose 250 mcg .ROUTE .STK-MED ONE Stop: 01/25/20 18:25 Last Admin: 01/25/20 20:17 Dose: Not Given Ephedrine Sulfate (Ephedrine Sulfate) 10 mg IVPUSH ASDIRECTED PRN PRN Reason: Hypotension Lactated Ringer's (Ringers, Lactated) 1,000 mls @ 999 mls/hr IV .BOLUS ONE Stop: 01/25/20 15:17 Last Admin: 01/25/20 16:40 Dose: 999 mls/hr Oxytocin/Sodium Chloride (Pitocin In Ns 20 Units/1,000 Ml) 20 unit in 1,000 mls @ 999 mls/hr IV BOLUS ONE Stop: 01/25/20 17:30 Last Admin: 01/25/20 18:09 Dose: 999 mls/hr Ropivacaine (Naropin 0.2%) Confirm Administered Dose 100 mls @ as directed .ROUTE .STK-MED ONE Stop: 01/25/20 16:49 Methylergonovine Maleate (Methergine) Confirm Administered Dose 0.2 mg .ROUTE .STK-MED ONE Stop: 01/25/20 18:25 Last Admin: 01/25/20 20:17 Dose: Not Given Misoprostol (Cytotec) Confirm Administered Dose 800 mcg .ROUTE .STK-MED ONE Stop: 01/25/20 18:25 Last Admin: 01/25/20 18:34 Dose: 800 mcg Misoprostol (Cytotec) 800 mcg RECTAL ONETIME ONE Stop: 01/25/20 18:26 Last Admin: 01/25/20 18:28 Dose: 800 mcg - Infant Interaction Infant Disposition, : in Room with Family Interaction: Holding Infant Feeding: Breastfed ; Nursed Well Support Person: Significant Other - Recovery Exam Fundal Tone: Firm Fundal Level: 1 Fingerbreadths Above Umbilicus Fundal Placement: Midline Lochia Amount: Moderate Lochia Color: Rubra/Red Perineum Description: Intact, Minimal Bruising/Swelling Episiotomy/Laceration: Approximated Urinary Elimination: Voided - Exam General: Alert, Oriented HEENT: Pupils Equal, Pupils Reactive, Mucous Membr. Moist/[place] Neck: Supple Lungs: Clear to Auscultation, Normal Respiratory Effort Cardiovascular: Regular Rate, Regular Rhythm GI/Abdominal Exam: Normal Bowel Sounds, Soft, Non-Tender, No Organomegaly, No Distention, No Mass, Pelvis Stable Extremities: Normal Inspection, Normal Range of Motion, Non-Tender, No Pedal Edema, Normal Capillary Refill Skin: Warm, Dry, Intact Neurological: No New Focal Deficit Psy/Mental Status: Alert, Normal Affect, Normal Mood - Problem List & Annotations (1) Active labor at term SNOMED Code(s): 68242059 Code(s): NKD4139 - Status: Acute Current Visit: Yes (2) History of delivery by vacuum extraction, currently in third trimester SNOMED Code(s): 760224246, 104717779 Code(s): O09.293 - SUPRVSN OF PREG W POOR REPRODCTV OR OBSTET HX, THIRD TRI Status: Acute Current Visit: No (3) SNOMED Code(s): 40300941 Code(s): Z34.90 - ENCNTR FOR SUPRVSN OF NORMAL , UNSP, UNSP TRIMESTER Status: Acute Current Visit: No Qualifiers: Weeks of gestation: 39 weeks (4) Vaginal delivery SNOMED Code(s): 953030688 Code(s): O80 - ENCOUNTER FOR FULL-TERM UNCOMPLICATED DELIVERY Status: Acute Current Visit: Yes (5) Mother currently breast-feeding SNOMED Code(s): 837940588 Code(s): Z39.1 - ENCOUNTER FOR CARE AND EXAMINATION OF LACTATING MOTHER Status: Acute Current Visit: Yes - Problem List Review Problem List Initiated/Reviewed/Updated: Yes - My Orders Last 24 Hours: My Active Orders 01/25/20 13:51 OB Check [OM.PC] Click to Edit 01/25/20 14:14 Patient Status [ADT] Routine Up ad Lay [RC] ASDIRECTED Calcium Carbonate [Tums] 1,000 mg PO Q2H PRN Ondansetron [Zofran] 4 mg IV Q4H PRN Sodium Chloride 0.9% [Saline Flush] 10 ml FLUSH ASDIRECTED PRN DVT/VTE Prophylaxis Reflex [OM.PC] Routine Saline Lock Insert [OM.PC] Routine Resuscitation Status Routine 01/25/20 14:16 Notify Provider Vital Signs [RC] PRN VTE/DVT Education [RC] Click to Edit 01/25/20 14:17 Epidural Catheter Management [OM.PC] Urgent 01/25/20 14:30 Insert Urinary Catheter [OM.PC] ASDIRECTED 01/25/20 18:35 Acetaminophen [Tylenol Bulk Bottle] 650 mg PO Q4H PRN Ibuprofen [Motrin Bulk Bottle] 600 mg PO Q6H PRN 01/25/20 18:53 Patient Status [ADT] Routine May Shower [RC] ASDIRECTED Vital Signs [RC] Q4H Consult to Milling Machinist [CONS] Routine Docusate Sodium [Colace] 100 mg PO BID PRN Lanolin [Lansinoh HPA] 1 gm TOP ASDIRECTED PRN Assess Lochia [WOMSER] Per Unit Routine Assess Uterine Involution [WOMSER] Per Unit Routine 01/25/20 18:54 Ice Therapy [OM.PC] Per Unit Routine Perineal Care [OM.PC] Per Unit Routine 01/25/20 Lunch Regular Diet [DIET] 01/26/20 08:00 Ferrous Sulfate 325 mg PO WITHBREAKFAST - Assessment Assessment:: 01/25/20 19 yo with 1st degree perineal with no repair, left labial with repair Beginning Hgb 9.9, pt bleeding light to moderate flow now 01/26/20 Day 1 , no complications FF bleeding light Hgb 9.1 Right nipple cracked and blistered, left nipple fine , does express that she may like to pump and/or supplement with formula - Plan Plan:: 01/25/20 19 yo here in active labor SVE 4- per nursing Membranes intact GBS negative, B positive blood type, rubella immune, Hep B/C/HIV negative Category 1 FHT Plan: Monitor for labor progression Epidural when patient desires Anticipate 01/25/20 Routine cares Monitor bleeding closely support Anticipate 24-48 hour stay 01/26/20 Routine cares support and consult today Anticipate discharge tomorrow
[2020-01-26] MEDS: Ferrous Sulfate 325 MG Tab PO SCH (13:46)
--- NOTE | 2020-01-27 10:08 | PCM.PNPP ---
- General Info Date of Service: 01/27/20 Functional Status: Reports: Pain Controlled - Review of Systems General: Reports: No Symptoms HEENT: Reports: No Symptoms Pulmonary: Reports: No Symptoms Cardiovascular: Reports: No Symptoms Gastrointestinal: Reports: No Symptoms Genitourinary: Reports: No Symptoms Musculoskeletal: Reports: No Symptoms Skin: Reports: No Symptoms Neurological: Reports: No Symptoms Psychiatric: Reports: No Symptoms - General Info Date of Service: 01/27/20 - Patient Data Vital Signs - Most Recent: Last Vital Signs Temp 35.7 C L 01/27/20 03:23 Pulse 77 01/27/20 03:23 Resp 16 01/27/20 03:23 BP 104/61 01/27/20 03:23 Pulse Ox 98 01/27/20 03:23 Weight - Most Recent: 93.758 kg Med Orders - Current: Current Medications Acetaminophen (Tylenol Bulk Bottle) 650 mg PO Q4H PRN PRN Reason: Pain Last Admin: 01/25/20 20:48 Dose: 650 mg Calcium Carbonate/Glycine (Tums) 1,000 mg PO Q2H PRN PRN Reason: Indigestion Docusate Sodium (Colace) 100 mg PO BID PRN PRN Reason: Constipation Emollient Ointment (Lansinoh Hpa) 1 gm TOP ASDIRECTED PRN PRN Reason: Sore Nipples Last Admin: 01/25/20 20:50 Dose: 1 applic Ferrous Sulfate (Ferrous Sulfate) 325 mg PO WITHBREAKFAST NNEKA Last Admin: 01/26/20 13:46 Dose: 325 mg Ibuprofen (Motrin Bulk Bottle) 600 mg PO Q6H PRN PRN Reason: Pain Last Admin: 01/25/20 20:47 Dose: 200 mg Ondansetron HCl (Zofran) 4 mg IV Q4H PRN PRN Reason: Nausea/Vomiting Sodium Chloride (Saline Flush) 10 ml FLUSH ASDIRECTED PRN PRN Reason: Keep Vein Open Discontinued Medications Carboprost Tromethamine (Hemabate Ds) Confirm Administered Dose 250 mcg .ROUTE .STK-MED ONE Stop: 01/25/20 18:25 Last Admin: 01/25/20 20:17 Dose: Not Given Ephedrine Sulfate (Ephedrine Sulfate) 10 mg IVPUSH ASDIRECTED PRN PRN Reason: Hypotension Lactated Ringer's (Ringers, Lactated) 1,000 mls @ 999 mls/hr IV .BOLUS ONE Stop: 01/25/20 15:17 Last Admin: 01/25/20 16:40 Dose: 999 mls/hr Oxytocin/Sodium Chloride (Pitocin In Ns 20 Units/1,000 Ml) 20 unit in 1,000 mls @ 999 mls/hr IV BOLUS ONE Stop: 01/25/20 17:30 Last Admin: 01/25/20 18:09 Dose: 999 mls/hr Ropivacaine (Naropin 0.2%) Confirm Administered Dose 100 mls @ as directed .ROUTE .STK-MED ONE Stop: 01/25/20 16:49 Methylergonovine Maleate (Methergine) Confirm Administered Dose 0.2 mg .ROUTE .STK-MED ONE Stop: 01/25/20 18:25 Last Admin: 01/25/20 20:17 Dose: Not Given Misoprostol (Cytotec) Confirm Administered Dose 800 mcg .ROUTE .STK-MED ONE Stop: 01/25/20 18:25 Last Admin: 01/25/20 18:34 Dose: 800 mcg Misoprostol (Cytotec) 800 mcg RECTAL ONETIME ONE Stop: 01/25/20 18:26 Last Admin: 01/25/20 18:28 Dose: 800 mcg - Interaction Infant Disposition, : [place] in Room with Family Infant Interaction: Holding Infant Feeding: Breastfed Infant; Nursed Well Support Person: Significant Other - Recovery Exam Fundal Tone: Firm Fundal Level: 1 Fingerbreadths Below Umbilicus Fundal Placement: Midline Lochia Amount: Moderate Lochia Color: Rubra/Red Perineum Description: Intact, Minimal Bruising/Swelling Episiotomy/Laceration: Approximated Bladder Status: Voiding Urinary Elimination: Voided - Exam General: Alert, Oriented HEENT: Pupils Equal Neck: Supple Lungs: Clear to Auscultation, Normal Respiratory Effort Cardiovascular: Regular Rate, Regular Rhythm GI/Abdominal Exam: Normal Bowel Sounds, Soft, Non-Tender, No Organomegaly, No Distention, No Mass, Pelvis Stable Extremities: Normal Inspection, Normal Range of Motion, Non-Tender, No Pedal Edema, Normal Capillary Refill Skin: Warm, Dry, Intact Neurological: No New Focal Deficit Psy/Mental Status: Alert, Normal Affect, Normal Mood - Problem List & Annotations (1) Active labor at term SNOMED Code(s): 65062269 Code(s): EYD4975 - Status: Acute Current Visit: Yes (2) History of delivery by vacuum extraction, currently in third trimester SNOMED Code(s): 011766940, 885541428 Code(s): O09.293 - SUPRVSN OF PREG W POOR REPRODCTV OR OBSTET HX, THIRD TRI Status: Acute Current Visit: No (3) SNOMED Code(s): 43014755 Code(s): Z34.90 - ENCNTR FOR SUPRVSN OF NORMAL , UNSP, UNSP TRIMESTER Status: Acute Current Visit: No Qualifiers: Weeks of gestation: 39 weeks (4) Vaginal delivery SNOMED Code(s): 390802670 Code(s): O80 - ENCOUNTER FOR FULL-TERM UNCOMPLICATED DELIVERY Status: Acute Current Visit: Yes (5) Mother currently breast-feeding SNOMED Code(s): 890645171 Code(s): Z39.1 - ENCOUNTER FOR CARE AND EXAMINATION OF LACTATING MOTHER Status: Acute Current Visit: Yes - Problem List Review Problem List Initiated/Reviewed/Updated: Yes - Assessment Assessment:: 01/25/20 19 yo with 1st degree perineal with no repair, left labial with repair Beginning Hgb 9.9, pt bleeding light to moderate flow now 01/26/20 Day 1 , no complications FF bleeding light Hgb 9.1 Right nipple cracked and blistered, left nipple fine , does express that she may like to pump and/or supplement with formula 01/27/20 PP day 2, no complications going well with nipple shield due to soreness Pain controlled, feels good - Plan Plan:: 01/25/20 19 yo here in active labor SVE 4-5/80 per nursing Membranes intact GBS negative, B positive blood type, rubella immune, Hep B/C/HIV negative Category 1 FHT Plan: Monitor for labor progression Epidural when patient desires Anticipate 01/25/20 Routine cares Monitor bleeding closely support Anticipate 24-48 hour stay 01/26/20 Routine cares support and consult today Anticipate discharge tomorrow 01/27/20 Discharge home today with 6 week PP check Warning s/s taught to patient Continue iron at home
[2020-01-27] MEDS: Ferrous Sulfate 325 MG Tab PO SCH (11:33)
[2020-01-27 12:42] VITALS: BP 110/65; PULSE 74
== END 2020-01-27 12:15 | disposition home or self-care (01) | DRG 807 ==
LOC: JP.OBCHECK 13:09 → JP.OB 14:00 → JP.MS 18:39 → OBSVTOIN 18:53
PROVIDERS: ADMIT Advanced Practice Midwife; ATTEND Advanced Practice Midwife
PROC: 10E0XZZ Delivery of Products of Conception, External Approach (ICD-10-PCS; principal; 2020-01-25)
PROC: 3E0P7VZ Introduction of Hormone into Female Reproductive, Via Natural or Artificial Opening (ICD-10-PCS; 2020-01-25)
PROC: 0HQ9XZZ Repair Perineum Skin, External Approach (ICD-10-PCS; 2020-01-25)
PROC: 3E0R3BZ Introduction of Anesthetic Agent into Spinal Canal, Percutaneous Approach (ICD-10-PCS; 2020-01-25)
PROC: 00HU33Z Insertion of Infusion Device into Spinal Canal, Percutaneous Approach (ICD-10-PCS; 2020-01-25)
DX: O69.81X0 Labor and delivery complicated by cord around neck, without compression, not applicable or unspecified (principal); Z37.0 Single live birth; Z3A.39 39 weeks gestation of pregnancy; O70.0 First degree perineal laceration during delivery
CPT/HCPCS: 36415; 51701; 59409; 81001; 84112; 85025; 99211; A9270-GY; J2590; J2795; J7120